=== PATIENT | male | born 1935 | race Caucasian/White ===

== ENCOUNTER → 2018-12-28 | Outpatient (CLI) | payer MEDICARE ==
[~2018-12-28] MED LIST: ASPI-504 PO; CHOL200018 PO; FENO145T20 PO; FENO48TA PO; IRB150T PO; IRBE300T13 PO; LACT1CAP66 PO; VIT1TABL93 PO
--- NOTE | 2018-12-28 14:12 | Diagnostic Imaging Report ---
PROCEDURE: CT head without contrast. TECHNIQUE: Multiple contiguous axial images were obtained through the brain without the use of intravenous contrast. Auto Exposure Controls were utilized during the CT exam to meet ALARA standards for radiation dose reduction. INDICATION: Fall. COMPARISON: No prior studies are available for comparison. FINDINGS: The ventricles and sulci are consistent with the patient's age. Moderate periventricular hypodensity is noted, consistent with senescent change. No sulcal effacement, midline shift, or hemorrhage is detected. Cisterns are patent. Visualized paranasal sinuses are clear. IMPRESSION: Senescent changes. No acute intracranial process is detected. Dictated by: Dictated on workstation # [id number]
== END ==
LOC: RAD 13:45
PROVIDERS: ATTEND Nurse Practitioner
DX: S09.90XA Unspecified injury of head, initial encounter (principal); S80.211A Abrasion, right knee, initial encounter; E78.49 Other hyperlipidemia; I48.91 Unspecified atrial fibrillation; V19.3XXA Pedal cyclist (driver) (passenger) injured in unspecified nontraffic accident, initial encounter; Z79.02 Long term (current) use of antithrombotics/antiplatelets
CPT/HCPCS: 70450

== ENCOUNTER 2019-02-27 07:54 | Observation (INO) | payer MEDICARE ==
[2019-02-27] VITALS (13 sets, daily range): BP systolic 111–154; BP diastolic 63–94
[~2019-02-27] VITALS: Ht 190.5 cm; Wt 107.1 kg
[2019-02-27] MEDS ORDERED: ASPIRIN 81 MG CHEW (CHILDREN'S ASA) PO ONE (08:00)
--- NOTE | 2019-02-27 08:14 | ED Chest Pain ---
General Chief Complaint: Chest Pain Stated Complaint: CHEST PAIN Source: patient History of Present Illness Date Seen by Provider: Feb 27, 2019 Time Seen by Provider: 07:56 Initial Comments PT ARRIVES VIA POV FROM HOME C/O LEFT SIDED CHEST PAIN --BEGAN BEFORE 0700 TODAY NO RADIATION OF PAIN NOTHING WORSENS OR IMPROVES PAIN MILD SHORTNESS OF BREATH AND HAS BEEN WHEEZING PT HAS HAD A NON-PRODUCTIVE COUGH FOR 4-5 DAYS NO FEVER NO SWELLING IN LEGS/ FEET OR PAIN IN CALVES NO SWEATS NO NAUSEA/VOMITING NO DIZZINESS OR SYNCOPE PT HAS HISTORY OF ATRIAL FIBRILLATION AND IS ON ELIQUIS DENIES ANY HISTORY OF CAD. PCP: DR. 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 Allergies and Home Medications Allergies Coded Allergies: Sulfa (Sulfonamide Antibiotics) (Unverified Allergy, Unknown, RASH, 06/07/14) Home Medications Cholecalciferol (Vitamin D3) 2,000 Unit Capsule, 2,000 UNIT PO DAILY, (Reported) Fenofibrate Nanocrystallized 145 Mg Tablet, 145 MG PO DAILY, (Reported) Irbesartan 300 Mg Tablet, 300 MG PO DAILY, (Reported) Patient Home Medication List Home Medication List Reviewed: Yes Review of Systems Review of Systems Constitutional: no symptoms reported; No chills, No diaphoresis, No dizziness, No fever EENTM: No Symptoms Reported Respiratory: See HPI, Cough, Shortness of Air, Wheezing Cardiovascular: See HPI, Chest Pain; Denies Edema; Irregular Heart Rate (CHRONIC ATRIAL FIBRILLATION); Denies Lightheadedness, Denies Syncope Gastrointestinal: No Symptoms Reported; Denies Abdominal Pain, Denies Nausea, Denies Vomiting Genitourinary: No Symptoms Reported Musculoskeletal: no symptoms reported Skin: no symptoms reported Psychiatric/Neurological: No Symptoms Reported Endocrine: No Symptoms Reported Hematologic/Lymphatic: No Symptoms Reported Past Holywoy-Jdmavw-Tsjndx Hx Patient Social History Alcohol Use: Denies Use Recreational Drug Use: No Smoking Status: Never a Smoker Recent Foreign Travel: No Contact w/Someone Who Travel: No Immunizations Up To Date Tetanus Booster (TDap): More than 5yrs Date of Pneumonia Vaccine: Sep 03, 2013 Date of Influenza Vaccine: Apr 05, 2014 Past Medical History Cardiac: Yes Atrial Fibrillation, High Cholesterol, Hypertension Neurological: No Reproductive Disorders: No Sexually Transmitted Disease: No HIV/AIDS: No Genitourinary: Yes Prostate Problems Gastrointestinal: No Musculoskeletal: Yes Arthritis Endocrine: No HEENT: Yes Cataract Loss of Vision: Denies Hearing Impairment: Denies Cancer: Yes Prostate Psychosocial: No Integumentary: No Blood Disorders: No Adverse Reaction/Blood Tranf: No Family Medical History Congenital heart disease 09 SISTER 09 SISTER Family history: Hypertension 09 SISTER 09 SISTER No Family History of: Abdominal aortic aneurysm Donell's disease Alcoholism Aphasia Cancer Cancer of colon Cataract Chest pain Congestive heart failure Cystic fibrosis Dementia Dysphagia Family history: Allergy Family history: Alzheimer's disease Family history: Arthritis Family history: Asthma Family history: Breast disease Family history: Cardiovascular disease Family history: Coronary thrombosis Family history: Diabetes mellitus Family history: Gastrointestinal disease Family history: Glaucoma Family history: Osteoporosis Family history: Thyroid disorder Headache Hearing loss Heart disease Hereditary disease History of - anemia History of - disorder History of - respiratory disease History of drug abuse Human immunodeficiency virus (HIV) seropositivity Hypercholesterolemia Infertile Kidney disease Malignant neoplasm of lung Myocardial infarction Parkinson's disease Prostate cancer Psychotic disorder Seizure disorder Stroke Tuberculosis Visual impairment Physical Exam Vital Signs Vital Signs - First Documented 02/27/19 02/27/19 07:54 08:22 Temp 99.2 Pulse 98 Resp 18 B/P (MAP) 152/80 (104) Pulse Ox 94 O2 Delivery Room Air Capillary Refill : Height, Weight, BMI Height: 6'3.00" Weight: 220lbs. 0.0oz. [id number]; BMI Method: General Appearance: No Apparent Distress, WD/WN Neck: Full Range of Motion, Normal Inspection, Non Tender, Supple; No Carotid Bruit, No JVD Respiratory: Wheezing (EXPIRATORY WHEEZING BILATERALLY. BUT MOSTLY ON LEFT ) Cardiovascular: No JVD, No Murmur, Normal Peripheral Pulses, Irregularly Irregular, Tachycardia (100-110'S) Gastrointestinal: Non Tender, Soft Extremity: Normal Capillary Refill, Normal Range of Motion, Non Tender, No Calf Tenderness, Pedal Edema (TRACE EDEMA BILATERALLY WITH CHRONIC VENOUS STASIS CHANGES BILATERALLY ) Neurologic/Psychiatric: Alert, Oriented x3, No Motor/Sensory Deficits, Normal Mood/Affect, willow machine tender II-XII Norm as Tested Skin: Normal Color, Warm/Dry Progress/Results/Core Measures Results/Orders Lab Results Laboratory Tests Test 02/27/19 08:08 Range/Units White Blood Count 9.9 4.3-11.0 10^3/uL Red Blood Count 3.88 L 4.35-5.85 10^6/uL Hemoglobin 12.4 L 13.3-17.7 G/DL Hematocrit 38 L 40-54 % Mean Corpuscular Volume 99 80-99 FL Mean Corpuscular Hemoglobin 32 25-34 PG Mean Corpuscular Hemoglobin Concent 33 32-36 G/DL Red Cell Distribution Width 13.3 10.0-14.5 % Platelet Count 268 130-400 10^3/uL Mean Platelet Volume 10.6 H 7.4-10.4 FL Neutrophils (%) (Auto) 61 42-75 % Lymphocytes (%) (Auto) 24 12-44 % Monocytes (%) (Auto) 11 0-12 % Eosinophils (%) (Auto) 3 0-10 % Basophils (%) (Auto) 0 0-10 % Neutrophils # (Auto) 6.0 1.8-7.8 X 10^3 Lymphocytes # (Auto) 2.4 1.0-4.0 X 10^3 Monocytes # (Auto) 1.1 H 0.0-1.0 X 10^3 Eosinophils # (Auto) 0.3 0.0-0.3 10^3/uL Basophils # (Auto) 0.0 0.0-0.1 10^3/uL Prothrombin Time 19.7 H 12.2-14.7 SEC INR Comment 1.6 H 0.8-1.4 Activated Partial Thromboplast Time 47 H 24-35 SEC Sodium Level 139 135-145 MMOL/L Potassium Level 3.8 3.6-5.0 MMOL/L Chloride Level 106 98-107 MMOL/L Carbon Dioxide Level 19 L 21-32 MMOL/L Anion Gap 14 5-14 MMOL/L Blood Urea Nitrogen 22 H 7-18 MG/DL Creatinine 1.20 0.60-1.30 MG/DL Estimat Glomerular Filtration Rate 58 BUN/Creatinine Ratio 18 Glucose Level 105 70-105 MG/DL Calcium Level 10.2 H 8.5-10.1 MG/DL Corrected Calcium 10.4 H 8.5-10.1 MG/DL Magnesium Level 1.3 L 1.6-2.4 MG/DL Total Bilirubin 1.7 H 0.1-1.0 MG/DL Aspartate Amino Transf (AST/SGOT) 22 5-34 U/L Alanine Aminotransferase (ALT/SGPT) 14 0-55 U/L Alkaline Phosphatase 46 40-136 U/L Total Creatine Kinase 70 30-200 U/L Creatine Kinase MB 1.7 <6.6 NG/ML Myoglobin 96.0 H 10.0-92.0 NG/ML Troponin I < 0.028 <0.028 NG/ML B-Type Natriuretic Peptide 125.8 H <100.0 PG/ML Total Protein 7.6 6.4-8.2 GM/DL Albumin 3.8 3.2-4.5 GM/DL Amylase Level 48 25-125 U/L Lipase 24 8-78 U/L Procalcitonin 0.04 <0.10 NG/ML My Orders Orders - ISAEL SÁNCHEZ DO Ekg Tracing (02/27/19 07:55) Cbc With Automated Diff (02/27/19 07:56) Magnesium (02/27/19 07:56) Chest 1 View, Ap/Pa Only (02/27/19 07:56) Cardiac Profile 1 (02/27/19 07:56) Comprehensive Metabolic Panel (02/27/19 07:56) Myoglobin Serum (02/27/19 07:56) Protime With Inr (02/27/19 07:56) Partial Thromboplastin Time (02/27/19 07:56) O2 (02/27/19 07:56) Monitor-Rhythm Ecg Trace Only (02/27/19 07:56) Lipid Panel (02/28/19 06:00) Ed Iv/Invasive Line Start (02/27/19 07:56) Creatine Kinase (02/27/19 07:56) Creatine Kinase Mb (02/27/19 07:56) Lipase (02/27/19 07:56) Amylase (02/27/19 07:56) BNP (02/27/19 07:56) Nitroglycerin 0.4 Mg Btl 25's (Nitrostat (02/27/19 08:00) Aspirin Chewable Tablet (Baby Aspirin Ch (02/27/19 08:00) Albuterol/Ipra Inhalation Soln (Duoneb I (02/27/19 08:15) Rt Request For Service (02/27/19 08:07) Svn Small Volume Nebulizer (02/27/19 08:07) Ct Angio Chest W (02/27/19 08:48) Ed Iv/Invasive Line Start (02/27/19 08:48) Ns Iv 1000 Ml (Sodium Chloride 0.9%) (02/27/19 08:48) Iohexol Injection (Omnipaque 350 Mg/Ml 1 (02/27/19 09:15) Received Contrast (Hold Metformin- Contr (02/27/19 09:15) Ns (Ivpb) (Sodium Chloride 0.9% Ivpb Bag (02/27/19 09:15) Magnesium 1 Gm/100 Ml Ivpb (Magnesium [place] (02/27/19 09:30) Ceftriaxone For Iv Use (Rocephin For I (02/27/19 10:15) Methylprednisolone Sod Succ (Solu-Medrol (02/27/19 10:01) Azithromycin Injection (Zithromax Inject (02/27/19 10:15) Medications Given in ED Current Medications Medications Dose Ordered Sig/Maryana Route Start Time Stop Time Status Last Admin Dose Admin Albuterol/ Ipratropium 3 ml ONCE ONCE INH 02/27/19 08:15 02/27/19 08:16 DC 02/27/19 08:22 3 ML Aspirin 324 mg ONCE ONCE PO 02/27/19 08:00 02/27/19 08:01 DC 02/27/19 08:17 324 MG Iohexol 100 ml ONCE ONCE IV 02/27/19 09:15 02/27/19 09:16 DC 02/27/19 09:23 100 ML Nitroglycerin 0.4 mg UD PRN SL 02/27/19 08:00 02/27/19 12:28 DC 02/27/19 08:34 0.4 MG Sodium Chloride 100 ml ONCE ONCE IV 02/27/19 09:15 02/27/19 09:16 DC 02/27/19 09:23 80 ML Sodium Chloride 1,000 ml @ 0 mls/hr Q0M ONCE IV 02/27/19 08:48 02/27/19 08:50 DC 02/27/19 08:52 1,000 MLS/HR Vital Signs/I&O 02/27/19 02/27/19 02/27/19 07:54 08:22 09:02 Temp 99.2 Pulse 98 93 Resp 18 18 B/P (MAP) 152/80 (104) 111/63 (79) Pulse Ox 94 93 94 O2 Delivery Room Air Room Air Progress Progress Note : Progress Note GIVEN NTG X 2--NO LONGER C/O PAIN, EXCEPT WITH BREATHING--STATES IT STILL HURTS TO BREATHE IN LEFT MID / UPPER CHEST. WHEEZING IMPROVED AFTER NEB TREATMENT NO DETERIORATION IN PT'S CONDITION DURING ER STAY Initial ECG Impression Date: Feb 27, 2019 Initial ECG Impression Time: 08:02 Initial ECG Rate: 109 Initial ECG Rhythm: A Fib/Flutter Initial ECG Impression: Nonspecific Changes Diagnostic Imaging Comments CXR--CARDIOMEGALY AND PERSISTENT/STABLE WIDENED MEDIASTINUM. VASCULATURE SLIGHT LY INCREASED FROM PREVIOUS--[place] RADIOLOGIST REPORT AT 0835 CT CHEST ANGIOGRAM/ ABDOMEN-PELVIS--NO P.E. MASS-LIKE CONSOLIDATION IN ARTHUR/LEFT MAJOR FISSURE--FAVORS PNEUMONIA, BUT CANNOT R/O NEOPLASM. MILD PROMINENCE OF RIGHT PULMONARY ARTERY, SMALL LEFT PLEURAL EFFUSION, CARDIOMEGALY--PER RADIOLOGIST REPORT AT 0955 Reviewed: Reviewed by Me Departure Communication (Admissions) 1003--SPOKE WITH DR. BURNETT, HOSPITALIST, ACCEPTS PT FOR ADMIT Impression Primary Impression: LEFT SIDED PNEUMONIA Additional Impressions: Chronic atrial fibrillation Hypomagnesemia Disposition: ADMITTED INPATIENT Condition: Stable Admissions Decision to Admit Reason: Admit from ER (General) Decision to Admit/Date: Feb 27, 2019 Time/Decision to Admit Time: 10:05 Departure-Patient Inst. Referrals: LYNNE MCKEON MD (PCP/Family) Primary Care Physician ISAEL SÁNCHEZ DO Feb 27, 2019 08:13
[2019-02-27] MEDS ORDERED: RT-ALBUTEROL/IPRATROPIUM 3 ML (DUONEB) VIAL INH ONE (08:15)
[2019-02-27] MEDS: NITROGLYCERIN 0.4 MG SL TABS BTL 25'S SL PRN ×2 (08:17→08:34)
[2019-02-27] MEDS ORDERED: APIX5TAB (08:21)
[2019-02-27 08:22] LABS: BASOPHILS % (AUTO) 0 % (0-10); EOSINOPHILS # (AUTO) 0.3 10^3/uL (0.0-0.3); EOSINOPHILS % (AUTO) 3 % (0-10); HEMATOCRIT 38 % (40-54); HEMOGLOBIN 12.4 G/DL (13.3-17.7); LYMPHOCYTES # (AUTO) 2.4 X 10^3 (1.0-4.0); LYMPHOCYTES % (AUTO) 24 % (12-44); MEAN CORPUSCULAR HEMOGLOBIN 32 PG (25-34); MEAN CORPUSCULAR HGB CONC 33 G/DL (32-36); MEAN CORPUSCULAR VOLUME 99 FL (80-99); MEAN PLATELET VOLUME 10.6 FL (7.4-10.4); MONOCYTES # (AUTO) 1.1 X 10^3 (0.0-1.0); MONOCYTES % (AUTO) 11 % (0-12); NEUTROPHILS % (AUTO) 61 % (42-75); PLATELET COUNT 268 10^3/uL (130-400); RED CELL DISTRIBUTION WIDTH 13.3 % (10.0-14.5); WHITE BLOOD COUNT 9.9 10^3/uL (4.3-11.0)
--- NOTE | 2019-02-27 08:31 | Diagnostic Imaging Report ---
INDICATION: Chest pain. TECHNIQUE: Single view chest 8:12 a.m. CORRELATION STUDY: 06/01/2014 FINDINGS: Heart size enlarged. Mediastinum is prominent but appears generally stable. Vasculature very slightly increased from prior study but without evidence of overt failure. Chronic appearing change about the lung parenchyma. No infiltrate. Calcified granuloma in lateral left midlung. IMPRESSION: 1. Cardiac enlargement and prominent, widened mediastinum again demonstrated. Vasculature slightly increased from previous study. Chronic changes of lung parenchyma. Dictated by: Dictated on workstation # [id number]
[2019-02-27 08:46] LABS: ALANINE AMINOTRANSFERASE 14 U/L (0-55); ALBUMIN 3.8 GM/DL (3.2-4.5); ALKALINE PHOSPHATASE 46 U/L (40-136); AMYLASE 48 U/L (25-125); BILIRUBIN,TOTAL 1.7 MG/DL (0.1-1.0); BUN/CREATININE RATIO 18; CALCIUM 10.2 MG/DL (8.5-10.1); CARBON DIOXIDE 19 MMOL/L (21-32); CHLORIDE 106 MMOL/L (98-107); CREATINE KINASE 70 U/L (30-200); GFR ESTIMATED 58; GLUCOSE 105 MG/DL (70-105); LIPASE 24 U/L (8-78); MAGNESIUM 1.3 MG/DL (1.6-2.4); POTASSIUM 3.8 MMOL/L (3.6-5.0); SODIUM 139 MMOL/L (135-145); TOTAL PROTEIN 7.6 GM/DL (6.4-8.2)
[2019-02-27] MEDS ORDERED: NS IV 1000 ML 1,000 ML IV ONE (08:48)
--- NOTE | 2019-02-27 08:49 | NUR ---
DR SÁNCHEZ NOTIFIED AFTER 2ND NITRO. SYSTOLIC IS 95 PATIENT REPORTS THAT PAIN WORSE WHEM HE TAKES A DEEP BREATH
[2019-02-27 08:54] LABS: CREATINE KINASE MB 1.7 NG/ML (<6.6)
--- NOTE | 2019-02-27 09:13 | NUR ---
TO CT PER W/C
[2019-02-27] MEDS ORDERED: IOHEXOL 350 MG/ML 100 ML (OMNIPAQUE 350) VIAL IV ONE (09:15)
[2019-02-27] MEDS ORDERED: NS 100 ML (IVPB) BAG IV ONE (09:15)
[2019-02-27] MEDS ORDERED: HOLD METFORMIN - RECEIVED CONTRAST 20 ML VIAL IV SCH (09:15)
[2019-02-27 09:29] LABS: INR 1.6 (0.8-1.4); PROTHROMBIN TIME PATIENT 19.7 SEC (12.2-14.7)
--- NOTE | 2019-02-27 09:45 | Diagnostic Imaging Report ---
PROCEDURE: CT angiography of the chest with contrast. TECHNIQUE: Multiple contiguous axial images were obtained through the chest after uneventful bolus administration of intravenous contrast. 3D reconstructed CTA MIP acquisitions were also performed. Auto Exposure Controls were utilized during the CT exam to meet ALARA standards for radiation dose reduction. INDICATION: Chest pain this morning. History of atrial fibrillation and prostate cancer. COMPARISON: CT from 06/01/2014. Chest x-ray from 02/27/2019. FINDINGS: The pulmonary arteries are diagnostic to the proximal segmental level. There is motion artifact on multiple images. No filling defect is seen to indicate pulmonary embolus. There is mild prominence of the right main pulmonary artery, which may be due to hypertension. The heart is mildly enlarged. There is no pericardial effusion. There are multiple mildly prominent mediastinal lymph nodes which are not significantly enlarged by size criteria. There is a hypoattenuating nodule in the left thyroid. There is no axillary adenopathy. There is a small left pleural effusion. There is dependent atelectasis bilaterally. There are airspace opacities in the left upper lobe, with a mass-like density anterior to the major fissure (image #60, series 3). This measures up to 2.3 cm in diameter. No pneumothorax is seen. Lung volumes are large with flattening of the diaphragm. No acute osseous abnormalities seen. Imaged portions of the upper abdomen demonstrate no acute abnormality. Cysts are noted in the left kidney. IMPRESSION: 1. No pulmonary embolus. 2. Mass-like consolidation anterior to the left major fissure in the left upper lobe. This is favored to represent pneumonia, although underlying neoplasm is not excluded. Consider followup CT in 4-6 weeks following completion of appropriate antibiotic therapy. 3. Mild prominence of the right pulmonary artery, may be due to pulmonary hypertension. 4. Small left pleural effusion. 5. Cardiomegaly. Dictated by: Dictated on workstation # [id number]
[2019-02-27] MEDS ORDERED: methylPREDNISolone 125 MG (Solu-MEDROL) VIAL IV STA (10:01)
[2019-02-27] MEDS ORDERED: AZITHROMYCIN INJECTION 500 MG in NS (IVPB) 250 ML IV ONE (10:15)
[2019-02-27] MEDS ORDERED: cefTRIAXone FOR IV USE 1,000 MG in WATER (STERILE) FOR INJECTION 10 ML IV ONE ×2 (10:15→12:45)
[2019-02-27] MEDS: MAGNESIUM 1 GM/100 ML IVPB 100 ML IV SCH ×5 (10:42→16:02)
--- NOTE | 2019-02-27 11:11 | NUR ---
REPORT GIVEN TO ALLISON REPORTED I WOULD KEEP HIM TILL FLU RESULTS WOULD CALL HER IF POS. S
[2019-02-27] MEDS ORDERED: NITROGLYCERIN 0.4 MG SL TABS BTL 25'S SL PRN (12:30)
[2019-02-27] MEDS ORDERED: morphine INJ 4 MG/ML 1 ML (VIAL/SYRINGE) IV PRN (12:30)
[2019-02-27] MEDS ORDERED: ACETAMINOPHEN 500 MG TAB (TYLENOL) PO PRN (12:30)
--- NOTE | 2019-02-27 12:30 | NUR ---
PT ADMITTED TO ROOM 418 WITH DIAGNOSIS OF PNEUMONIA, LEFT CHEST PAIN, CHRONIC AFIB, HYPOMAGNESIA. A/OX4. RATING PAIN 2/10 IN LEFT CHEST WHEN HE TAKES A DEEP BREATH. DEEP BREATHING AND COUGHING EDUCATION GONE OVER WITH PT. ASSESSMENT AND HISTORY OBTAINED. PT ORIENTED TO ROOM. IV TO LEFT AC INFUSING FIRST BAG OF MAG FROM ED. RIGHT HAND IV INFUSING AZITHROMYCIN. PT ABLE TO MAKE NEEDS KNOWN. WILL MONITOR PT CLOSELY.
[2019-02-27] MEDS: NS IV 1000 ML 1,000 ML IV SCH (12:40)
[2019-02-27] MEDS ORDERED: SENNA W/DOCUSATE (SENOKOT S) TABLET PO PRN (12:45)
[2019-02-27] MEDS ORDERED: POLYETHYLENE GLYCOL 17 GM (MIRALAX) PACK PO PRN (12:45)
[2019-02-27] MEDS ORDERED: MELATONIN 3 MG TABLET PO PRN (12:45)
[2019-02-27] MEDS ORDERED: ONDANSETRON 4 MG (ZOFRAN) ORAL DISSOLVE TAB PO PRN (12:45)
[2019-02-27] MEDS ORDERED: ACETAMINOPHEN 325 MG TABLET PO PRN (12:45)
--- NOTE | 2019-02-27 13:40 | History & Physical-Hospitalist ---
History of Present Illness HPI/Chief Complaint Maik Toussaint is an 83-year-old male with past medical history of essential hypertension, atrial fibrillation, who presented with left-sided pleuritic chest pain and was admitted with a left upper lobe pneumonia. He reports that he has had a cough. He denies shortness of breath. He denies fevers and chills. He denies abdominal pain, nausea, vomiting, diarrhea, and constipation.he is a former smoker, but has not smoked for over 40 years. Source: patient Exam Limitations: no limitations Date Seen 02/27/19 Time Seen by a Provider: 12:30 Attending Physician Sandro Dangelo MD PCP Sandro Dangelo MD Referring Physician Date of Admission Feb 27, 2019 at 10:03 Home Medications & Allergies Home Medications Reviewed patient Home Medication Reconciliation performed by pharmacy medication reconciliations event crew technician and/or nursing. Patients Allergies have been reviewed. Allergies Allergies Coded Allergies Sulfa (Sulfonamide Antibiotics) (Unverified Allergy, Unknown, RASH, 06/07/14) Past Gzlrxyp-Mmzzao-Qndzca Hx Past Med/Social Hx: Reviewed Nursing Past Med/Soc Hx, Reviewed and Corrections made Patient Social History Alcohol Use: Denies Use Recreational Drug Use: No Smoking Status: Former Smoker Recent Foreign Travel: No Contact w/other who traveled: No Recent Infectious Disease Expo: No Immunizations Up To Date Tetanus Booster (TDap): More than 5yrs Date of Pneumonia Vaccine: Sep 03, 2013 Date of Influenza Vaccine: Apr 05, 2014 Past Medical History Cardiac: Atrial Fibrillation, High Cholesterol, Hypertension Reproductive: No Sexually Transmitted Disease: No HIV/AIDS: No Genitourinary: Prostate Problems Musculoskeletal: Arthritis HEENT: Cataract Loss of Vision: Denies Hearing Impairment: Denies Cancer: Prostate History of Blood Disorders: No Adverse Reaction to Blood Rooney: No Family History Congenital heart disease 09 SISTER 09 SISTER Family history: Hypertension 09 SISTER 09 SISTER No Family History of: Abdominal aortic aneurysm Donell's disease Alcoholism Aphasia Cancer Cancer of colon Cataract Chest pain Congestive heart failure Cystic fibrosis Dementia Dysphagia Family history: Allergy Family history: Alzheimer's disease Family history: Arthritis Family history: Asthma Family history: Breast disease Family history: Cardiovascular disease Family history: Coronary thrombosis Family history: Diabetes mellitus Family history: Gastrointestinal disease Family history: Glaucoma Family history: Osteoporosis Family history: Thyroid disorder Headache Hearing loss Heart disease Hereditary disease History of - anemia History of - disorder History of - respiratory disease History of drug abuse Human immunodeficiency virus (HIV) seropositivity Hypercholesterolemia Infertile Kidney disease Malignant neoplasm of lung Myocardial infarction Parkinson's disease Prostate cancer Psychotic disorder Seizure disorder Stroke Tuberculosis Visual impairment Review of Systems Constitutional: no symptoms reported EENTM: no symptoms reported Respiratory: cough Cardiovascular: chest pain Gastrointestinal: no symptoms reported Genitourinary: no symptoms reported Musculoskeletal: no symptoms reported Skin: no symptoms reported Psychiatric/Neurological: No Symptoms Reported Physical Exam Physical Exam Vital Signs Vital Signs - First Documented 02/27/19 02/27/19 07:54 08:22 Temp 99.2 Pulse 98 Resp 18 B/P (MAP) 152/80 (104) Pulse Ox 94 O2 Delivery Room Air Capillary Refill : Less Than 3 Seconds Height, Weight, BMI Height: 6'3.00" Weight: 236lbs. 2.0oz. 107.357827js; BMI Method:Stated General Appearance: No Apparent Distress, WD/WN HEENT: PERRL/EOMI, Pharynx Normal Neck: Normal Inspection, Non Tender, Supple Respiratory: Lungs Clear, Normal Breath Sounds, No Respiratory Distress Cardiovascular: Regular Rate, Rhythm, No Edema, No Murmur Gastrointestinal: Normal Bowel Sounds, Non Tender, Soft Extremity: Normal Inspection, Non Tender, No Pedal Edema Neurologic/Psychiatric: Alert, Oriented x3 Skin: Normal Color, Warm/Dry Lymphatic: No Adenopathy Results Results/Procedures Labs Laboratory Tests 02/27/19 08:08 Patient resulted labs reviewed. Imaging: Reviewed Imaging Films, Reviewed Imaging Report Assessment/Plan Admission Diagnosis community-acquired pneumonia Admission Status: Observation Reason for Inpatient Admission: hypomagnesemia Hypertension Hyperlipidemia Chronic kidney disease Atrial fibrillation Assessment and Plan Community-acquired pneumonia Not meeting SIRS criteria on presentation Chest x-ray unrevealing CT chest revealed left upper lobe pneumonia, could not rule out underlying mass Blood cultures obtained Started on ceftriaxone and azithromycin Add on procalcitonin and strep pneumo antigen Curb 65 score 2, inpatient treatment recommended MAT protocol Will need to repeat CT chest in 4-6 weeks after pneumonia resolves Atrial fibrillation Continue Eliquis Hypertension Continue ARB Hyperlipidemia Continue fenofibrate Chronic kidney disease Stable at baseline, continue to monitor Clinical Quality Measures AMI/AHF: ASA po Prior to arrival: SUKHJINDER Barbosa MD Feb 27, 2019 13:40
[2019-02-27] MEDS ORDERED: methylPREDNISolone 125 MG (Solu-MEDROL) VIAL IV SCH (16:00)
[2019-02-27] MEDS: APIXABAN 5 MG (ELIQUIS) TABLET PO SCH (20:28)
[2019-02-27] MEDS: DOCUSATE SODIUM 100 MG (COLACE) CAP PO SCH (20:29)
[2019-02-27] MEDS ORDERED: FENOFIBRATE 134 MG (LOFIBRA) CAPSULE PO SCH (21:00)
[2019-02-28 00:24] VITALS: BP 132/81
[2019-02-28] MEDS: NS IV 1000 ML 1,000 ML IV SCH ×2 (03:35→05:01)
[2019-02-28 04:52] VITALS: BP 150/84
[2019-02-28 05:49] LABS: BASOPHILS % (AUTO) 0 % (0-10); EOSINOPHILS % (AUTO) 0 % (0-10); HEMATOCRIT 34 % (40-54); HEMOGLOBIN 11.4 G/DL (13.3-17.7); LYMPHOCYTES # (AUTO) 0.9 X 10^3 (1.0-4.0); LYMPHOCYTES % (AUTO) 8 % (12-44); MEAN CORPUSCULAR HEMOGLOBIN 33 PG (25-34); MEAN CORPUSCULAR HGB CONC 33 G/DL (32-36); MEAN CORPUSCULAR VOLUME 98 FL (80-99); MONOCYTES # (AUTO) 1.1 X 10^3 (0.0-1.0); MONOCYTES % (AUTO) 10 % (0-12); NEUTROPHILS # (AUTO) 8.6 X 10^3 (1.8-7.8); NEUTROPHILS % (AUTO) 82 % (42-75); PLATELET COUNT 259 10^3/uL (130-400); WHITE BLOOD COUNT 10.5 10^3/uL (4.3-11.0)
[2019-02-28 06:15] LABS: BUN/CREATININE RATIO 25; CALCIUM 9.5 MG/DL (8.5-10.1); CARBON DIOXIDE 19 MMOL/L (21-32); CHLORIDE 108 MMOL/L (98-107); CHOLESTEROL 127 MG/DL (< 200); CREATININE SERUM 1.06 MG/DL (0.60-1.30); GFR ESTIMATED > 60; GLUCOSE 120 MG/DL (70-105); HDL CHOLESTEROL 26 MG/DL (40-60); MAGNESIUM 2.3 MG/DL (1.6-2.4); POTASSIUM 4.2 MMOL/L (3.6-5.0); SODIUM 137 MMOL/L (135-145); TRIGLYCERIDES 99 MG/DL (<150); VLDL CHOLESTEROL 20 MG/DL (5-40)
[2019-02-28 08:00] VITALS: BP 163/90
[2019-02-28] MEDS: APIXABAN 5 MG (ELIQUIS) TABLET PO SCH (08:21)
[2019-02-28] MEDS: DOCUSATE SODIUM 100 MG (COLACE) CAP PO SCH (08:21)
[2019-02-28] MEDS ORDERED: AZITHROMYCIN 250 MG TAB (ZITHROMAX) PO SCH (09:00)
[2019-02-28] MEDS ORDERED: cefTRIAXone 1,000 MG/SWFI 10 ML IV PUSH IV SCH ×2 (09:00)
[2019-02-28] MEDS ORDERED: ASPIRIN E.C. 81 MG (ECOTRIN) TAB PO SCH (09:00)
[2019-02-28] MEDS ORDERED: LOSARTAN 100 MG (COZAAR) TABLET PO SCH (09:00)
[2019-02-28] MEDS ORDERED: NON-FORMULARY MEDICATION 1 EA EA (Irbesartan 300 MG) PO SCH (09:00)
[2019-02-28] MEDS: MAGNESIUM 1 GM/100 ML IVPB 100 ML IV SCH (09:11)
--- NOTE | 2019-02-28 09:12 | NUR ---
SPOKE WITH DR. TELLEZ RE UNADMINISTERED DOSE OF MAG ON EMAR. DC'D BY
[2019-02-28] MEDS ORDERED: AZIT250T12 PO (09:17)
[2019-02-28] MEDS ORDERED: CEPH-507 PO (09:17)
--- NOTE | 2019-02-28 09:20 | Discharge Summary ---
Diagnosis/Chief Complaint Date of Admission Feb 27, 2019 at 10:03 Date of Discharge Admission Diagnosis community-acquired pneumonia Primary Care Sandro Dangelo MD Discharge Summary Discharge Physical Exam Allergies: Coded Allergies: Sulfa (Sulfonamide Antibiotics) (Unverified Allergy, Unknown, RASH, 06/07/14) Vitals & I&Os Vital Signs Date Time Temp Pulse Resp B/P (MAP) Pulse Ox O2 Delivery O2 Flow Rate FiO2 02/28/19 10:34 89 20 163/90 94 Room Air 02/28/19 08:00 98.1 General Appearance: No Apparent Distress, WD/WN Respiratory: Lungs Clear, No Accessory Muscle Use, No Respiratory Distress Cardiovascular: Regular Rate, Rhythm, No Murmur Neurologic/Psychiatric: Alert, Oriented x3 Hospital Course Patient is an 82-year-old male who presented to the ER with chief complaint of left-sided chest pain was found to have a left sided pneumonia. Given his age is Tyler score indicated observation was appropriate he was admitted overnight. A pro calcitonin was done and was negative. He was started on antibiotics and improved. He was discharged home in stable condition to complete his antibiotics and to follow up with his PCP in the next week. Labs (last 24 hrs) Microbiology 02/27/19 Blood Culture - Final, Complete No growth 02/27/19 Influenza Types A,B Antigen (AIXA) - Final, Complete Patient resulted labs reviewed. Pending Labs Imaging: Reviewed Imaging Films, Reviewed Imaging Report Discussion & Recommendations Discharge Planning: >30 minutes discharge planning Discharge Home Medications: Active Scripts Active Keflex (Cephalexin) 500 Mg Capsule 500 Mg PO BID Azithromycin 250 Mg Tablet 250 Mg PO DAILY Reported Eliquis (Apixaban) 5 Mg Tablet Vitamin D-3 (Cholecalciferol (Vitamin D3)) 2,000 Unit Capsule 2,000 Unit PO DAILY Fenofibrate (Fenofibrate Nanocrystallized) 145 Mg Tablet 145 Mg PO DAILY Irbesartan 300 Mg Tablet 300 Mg PO DAILY Instructions to patient/family Please see electronic discharge instructions given to patient. Clinical Quality Measures AMI/AHF: ASA po Prior to arrival: No DVT/VTE Risk/Contraindication: Risk Factor Score Per Nursin RFS Level Per Nursing on Admit: 3=High RAGINI TELLEZ MD Feb 28, 2019 09:20
--- NOTE | 2019-02-28 09:23 | Discharge Inst-Simple/Standard ---
Discharge Inst-Standard Discharge Medications New, Converted or Re-Newed RX: Transmitted to Pharmacy Patient Instructions/Follow Up Plan of Care/Instructions/FU: Please continue to take your medications as written. Please follow up with Dr Dangelo in the next week to follow up this hospital stay. Please continue to take your antibiotics to complete your prescription even if you feel better. Activity as Tolerated: Yes Discharge Diet: No Restrictions Return to The Hospital For: Chest pain, shortness of breath, fever, confusion, if you feel you are getting worse. Planned Outpatient Orders/Ref. Pneu Vac Indicated: Yes RAGINI TELLEZ MD Feb 28, 2019 09:23
[2019-02-28] MEDS ORDERED: cefTRIAXone FOR IV USE 1,000 MG in WATER (STERILE) FOR INJECTION 10 ML IV SCH (09:30)
[2019-02-28] MEDS ORDERED: cefTRIAXone FOR IV USE 2,000 MG in WATER (STERILE) FOR INJECTION 20 ML IV SCH (10:00)
[2019-02-28 10:34] VITALS: BP 163/90
== END 2019-02-28 09:23 | disposition home or self-care (01) ==
LOC: ER 07:54 → EDUNIT# 07:54 → 4TH 10:03 → UNDOADMIN 10:03 → 4TH 11:28 → UNDODISIN 02-28 10:15
PROVIDERS: ADMIT Internal Medicine; ATTEND Internal Medicine
DX: J18.8 Other pneumonia, unspecified organism (principal); I12.9 Hypertensive chronic kidney disease with stage 1 through stage 4 chronic kidney disease, or unspecified chronic kidney disease; N18.9 Chronic kidney disease, unspecified; E83.42 Hypomagnesemia; E78.00 Pure hypercholesterolemia, unspecified; M19.90 Unspecified osteoarthritis, unspecified site; I48.2 Chronic atrial fibrillation; Z88.2 Allergy status to sulfonamides; Z79.2 Long term (current) use of antibiotics; Z79.01 Long term (current) use of anticoagulants; Z87.891 Personal history of nicotine dependence; Z85.46 Personal history of malignant neoplasm of prostate; Z82.49 Family history of ischemic heart disease and other diseases of the circulatory system; Z79.899 Other long term (current) drug therapy
CPT/HCPCS: 36415; 71045; 71275; 80048; 80053; 80061; 82150; 82550; 82553; 83605; 83690; 83735; 83874; 83880; 84145; 84484; 85025; 85610; 85730; 87040; 87804; 93005; 93041; 94640; G0378

== ENCOUNTER → 2019-04-08 | Outpatient (CLI) | payer MEDICARE ==
[~2019-04-08] MED LIST changes: +APIX5TAB; +AZIT250T12 PO; +CEPH-507 PO; +HOLD METFORMIN - RECEIVED CONTRAST 20 ML VIAL IV SCH; +IOHEXOL 350 MG/ML 100 ML (OMNIPAQUE 350) VIAL IV ONE; +NS 100 ML (IVPB) BAG IV ONE
[2019-04-08 15:04] LABS: CREATININE SERUM 1.22 MG/DL (0.60-1.30)
--- NOTE | 2019-04-08 19:12 | Diagnostic Imaging Report ---
PROCEDURE: CT chest with contrast only. TECHNIQUE: Multiple contiguous axial images were obtained through the chest after administration of intravenous contrast. Auto Exposure Controls were utilized during the CT exam to meet ALARA standards for radiation dose reduction. DATE: April 08, 2019. COMPARISON: CT chest, February 27, 2019. INDICATION: 83-year-old male, followup left lung consolidation. Shortness of breath. FINDINGS: There are predominantly linear opacities in the left upper lobe with interval improved consolidation of the left upper lobe adjacent to the fissure seen on prior CT exam of February 27, 2019. This likely previously related to pneumonia or other transient alveolar consolidative process. There is no evidence of malignancy at this site. There are additional predominantly linear opacities in the right lower lobe and left lower lobe which may reflect scarring and/or chronic lung changes. Components of atelectasis may also be present. There is a trace left pleural effusion. There is no pneumothorax. The central airways are patent. There is no identified pulmonary embolus. The main pulmonary artery is normal in caliber. There are coronary artery calcifications and additional areas of atherosclerotic disease. The heart is enlarged. There is no pericardial effusion. There is no identified abnormally enlarged mediastinal, hilar or axillary lymph node which meets CT size criteria for adenopathy. There is a low-attenuation left thyroid nodule, measuring 12 mm in size. There is a low-attenuation lesion in the left lobe of the liver, measuring 8 mm in size, which is too small to characterize. There is an incompletely imaged low-attenuation right renal lesion on axial image 173, measuring 9 mm in size. There are additional subcentimeter right renal lesions too small to characterize. There is a low-attenuation left renal lesion, measuring 1.6 cm in size, on axial image 170 with internal attenuation diagnostic for a benign cyst. Additional evaluation of the upper abdomen is unremarkable. There are multilevel degenerative changes of the spine. There is no identified acute bony abnormality. There are degenerative changes of the spine. IMPRESSION: CT chest: 1. Interval resolution of previously noted airspace consolidative process in the left upper lobe which likely previously reflected pneumonia or other transient alveolar consolidative process. No evidence of lung malignancy. 2. Chronic lung changes and scarring. Trace left pleural effusion. 3. Cardiomegaly. 4. Additional incidental findings as above. Dictated by: Dictated on workstation # [id number]
== END ==
LOC: RAD 14:39
PROVIDERS: ATTEND Internal Medicine
DX: J90 Pleural effusion, not elsewhere classified (principal); J98.4 Other disorders of lung; I51.7 Cardiomegaly; R91.8 Other nonspecific abnormal finding of lung field; K76.89 Other specified diseases of liver; E04.1 Nontoxic single thyroid nodule; M47.9 Spondylosis, unspecified
CPT/HCPCS: 36415; 71260; 82565; 84520

== ENCOUNTER 2019-06-30 15:43 | Observation (INO) | payer MEDICARE ==
[~2019-06-30] VITALS: Ht 190.5 cm; Wt 109.8 kg
[~2019-06-30 15:43] MED LIST changes: -HOLD METFORMIN - RECEIVED CONTRAST 20 ML VIAL IV SCH; -IOHEXOL 350 MG/ML 100 ML (OMNIPAQUE 350) VIAL IV ONE; -NS 100 ML (IVPB) BAG IV ONE
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
[2019-06-30] MEDS ORDERED: LIDOCAINE/EPI 2% 1:100,00 (XYLOCAINE) 20 ML VIAL ONE (17:04)
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
[2019-06-30] MEDS ORDERED: LIDOCAINE 1% INJ 20 ML 20 ML VIAL ONE (17:34)
--- NOTE | 2019-06-30 18:58 | NUR ---
kofi in room with ptAp
--- NOTE | 2019-06-30 19:12 | NUR ---
report given to charleen to assume care of pt
--- NOTE | 2019-06-30 19:15 | NUR ---
assumed primary nurse role
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
[2019-06-30 20:52] VITALS: BP 164/98
[2019-06-30] MEDS ORDERED: HYDROcodone/APAP 5 MG/325 MG (LORTAB) TAB PO PRN (21:30)
[2019-06-30 21:38] VITALS: BP 164/98
--- NOTE | 2019-06-30 23:26 | NUR ---
PT REFUSES HYDROCODONE FOR PAIN. DR. MAYA'[facility] [employer] [facility] [facility] CALLED FOR DIFFERENT PAIN MEDICATION. NEW ORDERS RECEIVED, SEE ORDER HISTORY
[2019-06-30] MEDS ORDERED: morphine INJ 4 MG/ML 1 ML (VIAL/SYRINGE) IVP PRN (23:30)
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
[2019-07-01 00:06] VITALS: BP 144/87
[2019-07-01 03:11] VITALS: BP 127/74
--- NOTE | 2019-07-01 07:01 | Progress Note ---
Standard Progress Note Progress Notes/Assess & Plan Date Seen by a Provider: Jul 01, 2019 Time Seen by a Provider: 06:58 Progress/Assessment & Plan the patient reports pain only at his contusion site. Denies paresthesias. Reports swellling has decreased Vital Signs Date Time Temp Pulse Resp B/P (MAP) Pulse Ox O2 Delivery O2 Flow Rate FiO2 07/01/19 03:11 36.4 92 18 127/74 (91) 98 Room Air 07/01/19 00:06 36.3 90 18 144/87 (106) 98 Room Air 06/30/19 21:38 36.5 103 20 164/98 100 Room Air 06/30/19 20:52 36.5 103 20 164/98 (120) 100 Room Air 06/30/19 20:50 Room Air 06/30/19 20:42 37.0 98 18 148/102 (169) 98 Room Air 06/30/19 15:45 37.0 115 16 192/158 (169) 98 Room Air I & O 07/01/19 07:00 Intake Total 300 ml Output Total 1000 ml Balance -700 ml LLE--tender at contusion site no pain posteriorly. Minimal swelling noted and decreased from last night. No pain with active or passive ROM of toes/ankle. pulses equal imp--no signs or symptoms of compartment syndrome DC home bedrest at home fro 24 hours. strict ER warnings given JERI MAYA MD Jul 01, 2019 07:01
[2019-07-01 07:36] VITALS: BP 117/79
[2019-07-01 11:18] VITALS: BP 117/79
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
== END 2019-07-01 12:32 | disposition home or self-care (01) ==
LOC: EDUNIT# 15:43 → ER 15:43 → 4TH 19:30
PROVIDERS: ADMIT Orthopaedic Surgery; ATTEND Orthopaedic Surgery
DX: S80.12XA Contusion of left lower leg, initial encounter (principal); S01.81XA Laceration without foreign body of other part of head, initial encounter; S01.21XA Laceration without foreign body of nose, initial encounter; S02.2XXA Fracture of nasal bones, initial encounter for closed fracture; I48.91 Unspecified atrial fibrillation; E78.00 Pure hypercholesterolemia, unspecified; E78.5 Hyperlipidemia, unspecified; I10 Essential (primary) hypertension; M19.90 Unspecified osteoarthritis, unspecified site; Z88.0 Allergy status to penicillin; Z79.899 Other long term (current) drug therapy; W05.0XXA Fall from non-moving wheelchair, initial encounter; Z82.49 Family history of ischemic heart disease and other diseases of the circulatory system
CPT/HCPCS: 70450; 72125; G0378

== ENCOUNTER → 2019-09-20 | Outpatient (CLI) | payer MEDICARE | LOC: WOUNDCARE 13:12 | PROVIDERS: ATTEND Surgery | DX: L97.222 Non-pressure chronic ulcer of left calf with fat layer exposed (principal); I87.332 Chronic venous hypertension (idiopathic) with ulcer and inflammation of left lower extremity; I70.242 Atherosclerosis of native arteries of left leg with ulceration of calf | CPT/HCPCS: 11042 ==

== ENCOUNTER → 2019-09-20 | Outpatient (CLI) | payer MEDICARE ==
[2019-09-20 15:06] LABS: ALANINE AMINOTRANSFERASE 15 U/L (0-55); ALBUMIN 3.9 GM/DL (3.2-4.5); ALKALINE PHOSPHATASE 39 U/L (40-136); BILIRUBIN,TOTAL 0.5 MG/DL (0.1-1.0); BUN/CREATININE RATIO 26; CALCIUM 10.4 MG/DL (8.5-10.1); CARBON DIOXIDE 23 MMOL/L (21-32); CHLORIDE 109 MMOL/L (98-107); CREATININE SERUM 1.14 MG/DL (0.60-1.30); GFR ESTIMATED > 60; GLUCOSE 91 MG/DL (70-105); SODIUM 141 MMOL/L (135-145); TOTAL PROTEIN 7.1 GM/DL (6.4-8.2)
== END ==
LOC: LAB 14:27
PROVIDERS: ATTEND Surgery
DX: Z01.89 Encounter for other specified special examinations (principal)
CPT/HCPCS: 36415; 80053; 84134

== ENCOUNTER → 2019-09-27 | Outpatient (CLI) | payer MEDICARE | LOC: WOUNDCARE 08:04 | PROVIDERS: ATTEND Surgery | DX: L97.222 Non-pressure chronic ulcer of left calf with fat layer exposed (principal); I87.332 Chronic venous hypertension (idiopathic) with ulcer and inflammation of left lower extremity | CPT/HCPCS: 11042 ==

== ENCOUNTER → 2019-10-04 | Outpatient (CLI) | payer MEDICARE | LOC: WOUNDCARE 08:05 | PROVIDERS: ATTEND Surgery | DX: L97.222 Non-pressure chronic ulcer of left calf with fat layer exposed (principal); I87.332 Chronic venous hypertension (idiopathic) with ulcer and inflammation of left lower extremity | CPT/HCPCS: 11042 ==

== ENCOUNTER → 2019-10-18 | Outpatient (CLI) | payer MEDICARE | LOC: WOUNDCARE 08:51 | PROVIDERS: ATTEND Surgery | DX: L97.222 Non-pressure chronic ulcer of left calf with fat layer exposed (principal); I87.332 Chronic venous hypertension (idiopathic) with ulcer and inflammation of left lower extremity | CPT/HCPCS: 99213 ==

== ENCOUNTER 2020-12-21 11:07 | Outpatient (RCR) | payer MEDICARE | END 2021-01-07 14:02 | disposition home or self-care (01) | PROVIDERS: ATTEND Internal Medicine | DX: M54.5 Low back pain (principal) ==

== ENCOUNTER 2021-11-19 08:17 | Emergency (ER) | payer MEDICARE ==
[~2021-11-19] VITALS: Ht 187 cm; Wt 96.0 kg
[2021-11-19 08:39] LABS: BASOPHILS # (AUTO) 0.1 10^3/uL (0.0-0.1); BASOPHILS % (AUTO) 1 % (0-10); EOSINOPHILS # (AUTO) 0.3 10^3/uL (0.0-0.3); EOSINOPHILS % (AUTO) 5 % (0-10); HEMATOCRIT 42 % (40-54); HEMOGLOBIN 13.9 g/dL (13.3-17.7); LYMPHOCYTES # (AUTO) 1.7 10^3/uL (1.0-4.0); LYMPHOCYTES % (AUTO) 33 % (12-44); MEAN CORPUSCULAR HEMOGLOBIN 32 pg (25-34); MEAN CORPUSCULAR HGB CONC 33 g/dL (32-36); MEAN CORPUSCULAR VOLUME 98 fL (80-99); MEAN PLATELET VOLUME 11.7 fL (9.0-12.2); MONOCYTES # (AUTO) 0.4 10^3/uL (0.0-1.0); MONOCYTES % (AUTO) 7 % (0-12); NEUTROPHILS # (AUTO) 2.6 10^3/uL (1.8-7.8); NEUTROPHILS % (AUTO) 53 % (42-75); PLATELET COUNT 197 10^3/uL (130-400); WHITE BLOOD COUNT 4.9 10^3/uL (4.3-11.0)
--- NOTE | 2021-11-19 08:48 | ED General ---
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 He reports he was sitting in a chair during the event. He denies losing consciousness during the event and reports minimal confusion during the event. He has not experienced vertigo or noticed a change in his strength or balance since the event. He had a friend with him who he reports didn't notice a loss of consciousness or convulsions during the event. He denies having chest pain or shortness of breath. He denies having a similar event in the past. Timing/Duration: Resolved Prior to Arrival Associated Systoms: Denies Symptoms (MARK FERNANDEZ) Allergies and Home Medications Allergies Coded Allergies: Sulfa (Sulfonamide Antibiotics) (Unverified Allergy, Unknown, RASH, 06/07/14) Patient Home Medication List Home Medication List Reviewed: Yes (MAMTA BETANCOURT MD) Apixaban (Eliquis) 5 Mg Tablet, (Reported) Entered as Reported by: TARAH RODRIGUEZ on 02/27/19 0821 Azithromycin (Azithromycin) 250 Mg Tablet, 250 MG PO DAILY Prescribed by: RAGINI TELLEZ on 02/28/19916 Cephalexin (Keflex) 500 Mg Capsule, 500 MG PO BID Prescribed by: RAGINI TELLEZ on 02/28/19916 Cholecalciferol (Vitamin D3) (Vitamin D-3) 2,000 Unit Capsule, 2,000 UNIT PO DAILY, (Reported) Entered as Reported by: ADOLFO DEWEY on 09/20/13 1100 Fenofibrate Nanocrystallized (Fenofibrate) 145 Mg Tablet, 145 MG PO DAILY, (Reported) Entered as Reported by: ADOLFO DEWEY on 09/20/13 1100 Irbesartan (Irbesartan) 300 Mg Tablet, 300 MG PO DAILY, (Reported) Entered as Reported by: ADOLFO DEWEY on 09/20/13 1100 Review of Systems Review of Systems Constitutional: No chills, No fever EENTM: No hearing loss, No blurred vision, No double vision Respiratory: No cough, No dyspnea on exertion Cardiovascular: see HPI Gastrointestinal: no symptoms reported Genitourinary: no symptoms reported Musculoskeletal: back pain (mild pain in Lumbar region) Skin: no symptoms reported Psychiatric/Neurological: Denies Headache, Denies Seizure, Denies Tremors, D enies Weakness Hematologic/Lymphatic: No Symptoms Reported Immunological/Allergic: no symptoms reported (MARK FERNANDEZ) Past Eavxtji-Nflxcs-Oupqkk Hx Patient Social History Tobacco Use?: Yes (15 pack year smoking history but hasn't smoked in 50 years) Tobacco type used: Cigarettes Smoking Status: Former Smoker Smokeless Tobacco Frequency: Former User Use of E-Cig and/or Vaping dev: No Use of E-Cig and/or Vaping Willy: Never a User Substance use?: No Alcohol Use?: No Pt feels they are or have been: No (MARK FERNANDEZ) Immunizations Up To Date Tetanus Booster (TDap): More than 5yrs (MARK FERNANDEZ) Past Medical History Surgeries: Yes (KNEE SURGERY, RUPTURED QUAD TENDON, leg fx) Gallbladder Respiratory: No Currently Using BIPAP: No Cardiac: Yes Atrial Fibrillation, High Cholesterol, Hypertension Neurological: No Reproductive Disorders: No Sexually Transmitted Disease: No HIV/AIDS: No Genitourinary: Yes Prostate Problems Gastrointestinal: No Musculoskeletal: Yes Arthritis Endocrine: No HEENT: Yes Cataract Loss of Vision: Denies Hearing Impairment: Denies Cancer: Yes Prostate Did You Recieve Any Treatments: Yes What Type of Treatment Did You: Radiation Had Prostate Brachytherapy treatment Psychosocial: No Integumentary: No Blood Disorders: No Adverse Reaction/Blood Tranf: No (MARK FERNANDEZ) Family Medical History Congenital heart disease 09 SISTER 09 SISTER Family history: Hypertension 09 SISTER 09 SISTER No Family History of: Abdominal aortic aneurysm Teller's disease Alcoholism Aphasia Cancer Cancer of colon Cataract Chest pain Congestive heart failure Cystic fibrosis Dementia Dysphagia Family history: Allergy Family history: Alzheimer's disease Family history: Arthritis Family history: Asthma Family history: Breast disease Family history: Cardiovascular disease Family history: Coronary thrombosis Family history: Diabetes mellitus Family history: Gastrointestinal disease Family history: Glaucoma Family history: Osteoporosis Family history: Thyroid disorder Headache Hearing loss Heart disease Hereditary disease History of - anemia History of - disorder History of - respiratory disease History of drug abuse Human immunodeficiency virus (HIV) seropositivity Hypercholesterolemia Infertile Kidney disease Malignant neoplasm of lung Myocardial infarction Parkinson's disease Prostate cancer Psychotic disorder Seizure disorder Stroke Tuberculosis Visual impairment Hypertension (MARK FERNANDEZ) Physical Exam Vital Signs Vital Signs - First Documented 11/19/21 08:26 Temp 36.2 Pulse 104 Resp 20 B/P (MAP) 187/107 (133) Pulse Ox 98 O2 Delivery Room Air (MAMTA BETANCOURT MD) Vital Signs Capillary Refill : Less Than 3 Seconds (MARK FERNANDEZ) Height, Weight, BMI Height: 6'3.00" Weight: 236lbs. 2.0oz. 107.478838gj; 27.00 BMI Method:Stated General Appearance: No Apparent Distress, WD/WN Eyes: Bilateral Eye PERRL, Bilateral Eye EOMI HEENT: PERRL/EOMI, Pharynx Normal, Moist Mucous Membranes Neck: Non Tender, Supple Respiratory: Chest Non Tender, Lungs Clear, No Accessory Muscle Use Cardiovascular: Irregularly Irregular, Tachycardia Gastrointestinal: Normal Bowel Sounds, No Organomegaly, No Pulsatile Mass, Non Tender, Soft Back: Vertebral Tenderness (patient reports the pain is miild) Extremity: Normal Capillary Refill, Non Tender, Pedal Edema (1+ pitting edema) Neurologic/Psychiatric: Alert, Oriented x3, No Motor/Sensory Deficits, Normal Mood/Affect, 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 Skin: Normal Color, Warm/Dry (MARK FERNANDEZ) Procedures/Interventions Suture Size: 4-0 (MARK FERNANDEZ) Progress/Results/Core Measures Suspected Sepsis Recent Fever Within 48 Hours: No Infection Criteria Present: None New/Unexplained Altered Menta: No SIRS Temperature: Pulse: 104 Respiratory Rate: 20 Laboratory Tests 11/19/21 08:28: White Blood Count 4.9 Blood Pressure 187 /107 Mean: 133 Laboratory Tests 11/19/21 08:28: Creatinine 1.19, INR Comment 1.5H, Platelet Count 197, Total Bilirubin 1.2H (MARK FERNANDEZ) Results/Orders Lab Results Laboratory Tests Test 11/19/21 08:28 11/19/21 12:07 Range/Units White Blood Count 4.9 4.3-11.0 10^3/uL Red Blood Count 4.35 4.30-5.52 10^6/uL Hemoglobin 13.9 13.3-17.7 g/dL Hematocrit 42 40-54 % Mean Corpuscular Volume 98 80-99 fL Mean Corpuscular Hemoglobin 32 25-34 pg Mean Corpuscular Hemoglobin Concent 33 32-36 g/dL Red Cell Distribution Width 14.3 10.0-14.5 % Platelet Count 197 130-400 10^3/uL Mean Platelet Volume 11.7 9.0-12.2 fL Immature Granulocyte % (Auto) 0 % Neutrophils (%) (Auto) 53 42-75 % Lymphocytes (%) (Auto) 33 12-44 % Monocytes (%) (Auto) 7 0-12 % Eosinophils (%) (Auto) 5 0-10 % Basophils (%) (Auto) 1 0-10 % Neutrophils # (Auto) 2.6 1.8-7.8 10^3/uL Lymphocytes # (Auto) 1.7 1.0-4.0 10^3/uL Monocytes # (Auto) 0.4 0.0-1.0 10^3/uL Eosinophils # (Auto) 0.3 0.0-0.3 10^3/uL Basophils # (Auto) 0.1 0.0-0.1 10^3/uL Immature Granulocyte # (Auto) 0.0 0.0-0.1 10^3/uL Prothrombin Time 18.4 H 12.2-14.7 SEC INR Comment 1.5 H 0.8-1.4 Activated Partial Thromboplast Time 39 H 24-35 SEC Sodium Level 143 135-145 MMOL/L Potassium Level 3.8 3.6-5.0 MMOL/L Chloride Level 107 98-107 MMOL/L Carbon Dioxide Level 25 21-32 MMOL/L Anion Gap 11 5-14 MMOL/L Blood Urea Nitrogen 22 H 7-18 MG/DL Creatinine 1.19 0.60-1.30 MG/DL Estimat Glomerular Filtration Rate 59 BUN/Creatinine Ratio 18 Glucose Level 105 70-105 MG/DL Calcium Level 9.8 8.5-10.1 MG/DL Corrected Calcium 9.9 8.5-10.1 MG/DL Magnesium Level 1.6 1.6-2.4 MG/DL Total Bilirubin 1.2 H 0.1-1.0 MG/DL Aspartate Amino Transf (AST/SGOT) 21 5-34 U/L Alanine Aminotransferase (ALT/SGPT) 12 0-55 U/L Alkaline Phosphatase 44 40-136 U/L Myoglobin 152.1 H 10.0-92.0 NG/ML Troponin I < 0.028 <0.028 NG/ML B-Type Natriuretic Peptide 115.3 H <100.0 PG/ML Total Protein 7.5 6.4-8.2 GM/DL Albumin 3.9 3.2-4.5 GM/DL Urine Color YELLOW Urine Clarity CLEAR Urine pH 5.5 5-9 Urine Specific [place] 1.015 L 1.016-1.022 Urine Protein 2+ H NEGATIVE Urine Glucose (UA) NEGATIVE NEGATIVE Urine Ketones NEGATIVE NEGATIVE Urine Nitrite NEGATIVE NEGATIVE Urine Bilirubin NEGATIVE NEGATIVE Urine Urobilinogen 1.0 < = 1.0 MG/DL Urine Leukocyte Esterase NEGATIVE NEGATIVE Urine RBC (Auto) NEGATIVE NEGATIVE Urine RBC NONE /HPF Urine WBC RARE /HPF Urine Squamous Epithelial Cells RARE /HPF Urine Crystals NONE /LPF Urine Bacteria NEGATIVE /HPF Urine Casts NONE /LPF Urine Mucus SMALL H /LPF Urine Culture Indicated NO (MAMTA BETANCOURT MD) My Orders Orders - MAMTA BETANCOURT MD Cbc With Automated Diff (11/19/21 08:34) Magnesium (11/19/21 08:34) Chest 1 View, Ap/Pa Only (11/19/21 08:34) Ekg Tracing (11/19/21 08:34) Comprehensive Metabolic Panel (11/19/21 08:34) Myoglobin Serum (11/19/21 08:34) Protime With Inr (11/19/21 08:34) Partial Thromboplastin Time (11/19/21 08:34) O2 (11/19/21 08:34) Monitor-Rhythm Ecg Trace Only (11/19/21 08:34) Ed Iv/Invasive Line Start (11/19/21 08:34) Troponin I Don (11/19/21 08:34) Bnp [place] (11/19/21 08:43) Us Carotid Riya Complete [id number] (11/19/21 10:47) Ua Culture If Indicated (11/19/21 12:02) (MAMTA BETANCOURT MD) Vital Signs/I&O 11/19/21 11/19/21 08:26 13:25 Temp 36.2 Pulse 104 64 Resp 20 16 B/P (MAP) 187/107 (133) 164/101 Pulse Ox 98 98 O2 Delivery Room Air Room Air (MAMTA BETANCOURT MD) Vital Signs/I&O Capillary Refill : Less Than 3 Seconds (MARK FERNANDEZ) Blood Pressure Mean: 133 Progress Note : Time: 10:40 Progress Note 10:40 Saw patient after reviewing his labs and imaging. His workup thus far has been unremarkable other than EKG showing Atrial fibrillation. No elevation of troponin or signs of ST elevation have been noted. Patient is in no pain or distress and resting comfortably in his bed. His lightheaded/dizzy event was likely related to his atrial fibrillation. Could also be due to carotid stenosis playing a role. This was discussed with the patient and he agreed to have carotid artery ultrasound while he is here. Pending the results of the ultrasound patient will likely be okay to discharge and follow up with his PCP, Dr. Dangelo. He would be a good candidate to have 24 hr heart monitor to assess for rate or rhythm irregularities contributing to todays event. 1205 Results from Carotid artery Ultrasound came back showing athertosclerotic disease without signficant stenosis. This reinforces the assumption at this time that his lightheaded/dizziness was due to his afib for another brief arrhythmia. Patient did use the restroom while he was here and since he mentions having some back pain currently will send for urinalysis to look for signs of cystitis or pyelonephritis. (MARK FERNANDEZ) ECG Initial ECG Impression Date: November 19, 2021 Initial ECG Impression Time: 08:46 Initial ECG Rate: 89 Initial ECG Rhythm: A Fib/Flutter Initial ECG Impression: Atrial Fibrillation Comment Rate controlled atrial fibrillation with no ST elevation or depression. No significant abnormal intervals or axis deviation. (MAMTA BETANCOURT MD) Diagnostic Imaging Diagonstic Imaging: Xray Plain Films/CT/US/NM/MRI: chest, other (Carotid artery ultrasound) Comments X ray was reviewed by me and preliminary report can be seen below: NAME: MAGALY DEGROOT Eduarda TOMLINSON REC#: [id number] PT STATUS: REG ER : 1935 PHYSICIAN: MAMTA BETANCOURT MD ADMIT DATE: 11/19/21/ER Draft Date of Exam:11/19/21 CHEST 1 VIEW, AP/PA ONLY INDICATION: Dizziness and lightheadedness. FINDINGS: There is no focal consolidation. The heart size is upper limits but stable from prior. The benign calcified granuloma in the left midlung is stable. No suspicious or noncalcified chest nodule. There are background changes of air trapping and COPD. No focal infiltrate. No findings of edema or pneumonia. IMPRESSION: No acute appearing abnormality. Dictated on workstation # [id number] Dict: 11/19/21 0900 Trans: 11/19/21 0904 [id number] Interpreted by: KAT SIGALA Electronically signed by: 12:25 Carotid artery ultrasound images were reviewed by me and preliminary report can be seen below: NAME: MAGALY DEGROOT [facility] REC#: [id number] PT STATUS: REG ER : 1935 PHYSICIAN: MAMTA BETANCOURT MD ADMIT DATE: 11/19/21/ER Draft Date of Exam:11/19/21 US CAROTID RIYA COMPLETE [id number] PROCEDURE: US carotid duplex, bilateral. TECHNIQUE: Multiple real-time grayscale images were obtained over the carotid arteries in various projections, bilaterally. Additional spectral analysis and color Doppler duplex images were also obtained. INDICATION: Lightheadedness. FINDINGS: The vertebral flow is in the normal antegrade direction bilaterally. The bilateral common internal and external carotid arterial systolic velocities and ICA/CCA percent ratios are normal. There is mild intimal thickening and scattered plaques without significant stenosis. Carotids maintain normal color Doppler blood flow and a normal waveform. IMPRESSION: Mild atherosclerotic disease without significant stenosis. Parameters based on the consensus panel Melendez-Scale and Doppler ultrasound criteria published May 2003, Radiology, Volume 229. DOPPLER (peak systolic velocity M/S Right Left CCA .56 .76 ICA Proximal 47 .38 ICA Mid .50 .46 ICA Distal .48 .48 RATIO .90 .64 ECA .86 .83 VERT .39 .39 Dictated on workstation # [id number] Dict: 11/19/21 1149 Trans: 11/19/21 1153 [facility] [id number] Interpreted by: KAT SIGALA Electronically signed by: (MARK FERNANDEZ) Departure Impression Primary Impression: Lightheadedness Additional Impressions: Atrial fibrillation Qualified Codes: I48.11 - Longstanding persistent atrial fibrillation Episode of hypertension Disposition: 01 HOME, SELF-CARE Condition: Stable Departure-Patient Inst. Decision time for Depature: 13:08 (MAMTA BETANCOURT MD) Referrals: LYNNE DANGELO MD (PCP/Family) Primary Care Physician Patient Instructions: Atrial Fibrillation, High Blood Pressure ED Add. Discharge Instructions: Follow-up with Dr. Dangelo as soon as possible. In the meantime, check your blood pressures once or twice a day and keep a log to present at your follow-up appointment. Drink plenty of clear liquids to stay well-hydrated. If you feel symptoms of lightheadedness, rapid heart rate, weakness, shortness of breath, etc. capture an EKG on your watch to share with Dr. Dangelo. If symptoms are severe or pe rsist more than a minute or 2, please return to the emergency room for further evaluation. Call with questions or concerns. All discharge instructions reviewed with patient and/or family. Voiced understanding. Medical Student Attestation and Attending Note: I have personally interviewed and examined this patient along with Mark Fernandez, MS 3. I have reviewed student documentation including history, physical, and assessments. I agree with the documentation except where otherwise noted. Work-up was relatively unremarkable. There was no imaging of carotid arteries on file. Carotid ultrasound was obtained. No significant stenosis was identified. Patient was encouraged to pursue further evaluation with Dr. Dangelo, possibly even a manager monitoring for a longer period of time. Exam: General: Alert, oriented, no acute distress, well developed HEENT: Normocephalic and atraumatic, no carotid bruit or JVD Heart: Irregularly irregular, normal rate Lungs: Clear to auscultation bilaterally with normal effort Abdomen: Soft, nontender, nondistended, normal bowel sounds Neuropsych: Alert, oriented, no focal deficits Skin: Warm and dry without rashes (MAMTA BETANCOURT MD) Copy Copies To 1: LYNNE DANGELO MD, CARSON November 19, 2021 08:48 MAMTA BETANCOURT MD November 19, 2021 13:15
[2021-11-19 08:49] LABS: ALBUMIN 3.9 GM/DL (3.2-4.5); POTASSIUM 3.8 MMOL/L (3.6-5.0)
[2021-11-19 08:50] LABS: CALCIUM 9.8 MG/DL (8.5-10.1)
[2021-11-19 08:52] LABS: TOTAL PROTEIN 7.5 GM/DL (6.4-8.2)
[2021-11-19 08:53] LABS: BILIRUBIN,TOTAL 1.2 MG/DL (0.1-1.0); INR 1.5 (0.8-1.4); PROTHROMBIN TIME PATIENT 18.4 SEC (12.2-14.7)
[2021-11-19 08:55] LABS: CREATININE SERUM 1.19 MG/DL (0.60-1.30)
[2021-11-19 08:58] LABS: MAGNESIUM 1.6 MG/DL (1.6-2.4)
--- NOTE | 2021-11-19 09:04 | Diagnostic Imaging Report ---
INDICATION: Dizziness and lightheadedness. FINDINGS: There is no focal consolidation. The heart size is upper limits but stable from prior. The benign calcified granuloma in the left midlung is stable. No suspicious or noncalcified chest nodule. There are background changes of air trapping and COPD. No focal infiltrate. No findings of edema or pneumonia. IMPRESSION: No acute appearing abnormality. Dictated by: Dictated on workstation # [id number]
[2021-11-19] MEDS ORDERED: LORazepam INJ 2 MG/ML (ATIVAN) VIAL IVP ONE (09:15)
[2021-11-19] MEDS ORDERED: ONDANSETRON 4 MG/2 ML (SDV) Z0FRAN IVP ONE (09:15)
[2021-11-19] MEDS ORDERED: FAMOTIDINE 20MG/2ML IV (PEPCID) IVP ONE (09:15)
[2021-11-19] MEDS ORDERED: PANTOPRAZOLE 40 MG (PROTONIX) VIAL IV ONE (09:15)
--- NOTE | 2021-11-19 11:54 | Diagnostic Imaging Report ---
PROCEDURE: US carotid duplex, bilateral. TECHNIQUE: Multiple real-time grayscale images were obtained over the carotid arteries in various projections, bilaterally. Additional spectral analysis and color Doppler duplex images were also obtained. INDICATION: Lightheadedness. FINDINGS: The vertebral flow is in the normal antegrade direction bilaterally. The bilateral common internal and external carotid arterial systolic velocities and ICA/CCA percent ratios are normal. There is mild intimal thickening and scattered plaques without significant stenosis. Carotids maintain normal color Doppler blood flow and a normal waveform. IMPRESSION: Mild atherosclerotic disease without significant stenosis. Parameters based on the consensus panel Melendez-Scale and Doppler ultrasound criteria published May 2003, Radiology, Volume 229. DOPPLER (peak systolic velocity M/S Right Left CCA .56 .76 ICA Proximal 47 .38 ICA Mid .50 .46 ICA Distal .48 .48 RATIO .90 .64 ECA .86 .83 VERT .39 .39 Dictated by: Dictated on workstation # [id number]
[2021-11-19 12:16] LABS: BILIRUBIN,URINE NEGATIVE (NEGATIVE); CLARITY,URINE CLEAR; COLOR,URINE YELLOW; GLUCOSE, URINE (UA) NEGATIVE (NEGATIVE); KETONES,URINE NEGATIVE (NEGATIVE); LEUKOCYTE ESTERASE ,URINE NEGATIVE (NEGATIVE); NITRITE,URINE NEGATIVE (NEGATIVE); PH,URINE 5.5 (5-9); PROTEIN,URINE 2+ (NEGATIVE)
[2021-11-19 12:42] LABS: BACTERIA,URINE NEGATIVE /HPF; SQUAMOUS EPITHELIAL CELL,UR RARE /HPF; WBC,URINE RARE /HPF
[2021-11-19 13:25] VITALS: BP 164/101
== END 2021-11-19 13:25 | disposition home or self-care (01) ==
LOC: EDUNIT# 08:17 → ER 08:18
DX: I48.11 Longstanding persistent atrial fibrillation (principal); I10 Essential (primary) hypertension; Z87.891 Personal history of nicotine dependence
CPT/HCPCS: 36415; 71045; 80053; 81000; 83735; 83874; 83880; 84484; 85025; 85610; 85730; 93005; 93041; 93880